=== PATIENT | male | born 1945 | race Caucasian/White ===

== ENCOUNTER 2017-05-02 11:22 | Emergency (ER) | payer MEDICARE, OTHER ==
[2017-05-02 14:07] VITALS: BP 142/92
--- NOTE | 2017-05-02 14:07 | UC ---
Knee Pain HPI - HPI Summary HPI Summary: This is a 71 yo otherwise healthy davis who presented with a 3d h/o R knee pain. Patient was kneeling, working on a piece of farm equipment when he slipped, falling backwards. He hyperflexed his knee. He has had pain and instability in the knee since the time of injury. He is unable to localize the pain. He is asx at rest, pain is only with WB. - History of Current Complaint Chief Complaint: UCLowerExtremity Stated Complaint: KNEE INJURY Time Seen by Provider: 05/02/17 13:20 - Allergies/Home Medications Allergies/Adverse Reactions: Allergies Allergy/AdvReac Type Severity Reaction Status Date / Time PENICILLIN Allergy Unknown Uncoded 05/02/17 11:56 Reaction Details PMH/Surg Hx/FS Hx/Imm Hx Previously Healthy: Yes - Surgical History Surgical History: Yes Surgery Procedure, Year, and Place: UMBILICAL HERNIA-4 YEARS AGO-[facility]. OTHER SURGERIES IN THE PAST WELL. 1985-SURGERY-. 2013- 1 WEEK AGO- [facility]- STATES HAD LOW O2 SAT DURING PROCEDURE- STATES RECEIVED EPINEPHRINE FOR-DONE IN [place] - Family History Known Family History: Positive: None - Social History Alcohol Use: None Substance Use Type: None Smoking Status (MU): Never Smoked Tobacco Review of Systems Constitutional: Negative Skin: Negative Eyes: Negative ENT: Negative Respiratory: Negative Cardiovascular: Negative Gastrointestinal: Negative Genitourinary: Negative Motor: Decreased ROM Neurovascular: Negative Musculoskeletal: Arthralgia Neurological: Negative Psychological: Negative All Other Systems Reviewed And Are Negative: Yes Physical Exam Triage Information Reviewed: Yes Appearance: Well-Appearing Vital Signs: Initial Vital Signs Temp 98.4 F 05/02/17 11:52 Pulse 53 05/02/17 11:52 Resp 18 05/02/17 11:52 BP 140/80 05/02/17 11:52 Pulse Ox 96 05/02/17 11:52 Vital Signs Reviewed: Yes Respiratory: Positive: Lungs clear, Normal breath sounds. Negative: Crackles, Rhonchi, Wheezing Cardiovascular: Positive: RRR, No Murmur Abdomen Description: Positive: Nontender Musculoskeletal: Positive: Other: - mild R knee effusion, some mild TTP along medial joint line, Timo's feels slightly more lax on the R side when compared to the L Skin Exam: Normal Skin: Negative: rashes Knee Pain Course/Dx - Course Course Of Treatment: This is an otherwise healthy 71 yo gentleman who presented with R knee pain after a hyperflexion injury 3 days ago. ACL feels slightly lax and he has mild medial joint line TTP. Explained to patient that he likely tore his ACL and/or medial meniscus. Suggested ortho f/u which he was wary to consider. Otherwise NSAIDs, ice, and compression recommended. No indication for XR - Differential Dx/Diagnosis Differential Diagnosis/HQI/PQRI: Fracture (Closed), Patellofemoral Syndrome, Sprain, Strain, Tendonitis Provider Diagnoses: 1. Knee derangement - suspected R ACL and/or medial mensicus tear Discharge - Discharge Plan Condition: Stable Disposition: HOME Prescriptions: Naproxen Sodium [Naproxen Sodium 500 MG TAB] 500 mg PO BID #60 tab Patient Education Materials: ACL Injury (ED), Meniscus Tear (ED) Referrals: Amilcar Mitchell MD [Medical Doctor] - If Needed Additional Instructions: Activity: As tolerated Instructions: 1. Please use naproxen, apply ice frequently and keep compression sleeve in place to help with pain/swelling 2. Consider follow up with orthopedist listed above if pain and instability persist
== END 2017-05-02 14:10 | disposition home or self-care (01) ==
LOC: UCEAST 11:22
DX: M23.91 Unspecified internal derangement of right knee (principal); W17.89XA Other fall from one level to another, initial encounter; Y93.9 Activity, unspecified; Y92.79 Other farm location as the place of occurrence of the external cause; Y99.9 Unspecified external cause status
CPT/HCPCS: 99212; G0463